=== PATIENT | male | born 1975 | race Caucasian/White ===

== ENCOUNTER 2022-05-05 06:14 | Emergency (ER) | payer BC ==
[2022-05-05 07:10] LABS: BASO % 0.7 % (0-2.0); HEMATOCRIT 47.2 % (35.4-49); LYMPH % 30.5 % (8-40); MCH 32.2 pg (25.7-33.7); MCHC 33.8 g/dl (32.0-35.9); MEAN CELL VOLUME 95.2 fl (80-96); MEAN PLT VOLUME 8.2 fl (7.5-11.1); MONO % 11.4 % (3.8-10.2); NEUT % 55.4 % (42.8-82.8); PLATELET COUNT 280 10^3/uL (134-434); RBC 4.96 M/mm3 (4.00-5.60); RDW 13.7 % (11.9-15.9); WHITE BLOOD COUNT 7.3 K/mm3 (4.0-10.0)
[2022-05-05 07:11] VITALS: RESP 18; TEMP 98; BMI 24.3
[2022-05-05 10:36] VITALS: BP 137/97; PULSE 109
[2022-05-05 10:38] LABS: ALBUMIN 4.5 g/dl (3.4-5.0); BILIRUBIN,TOTAL 0.2 mg/dL (0.2-1); BLOOD UREA NITROGEN 14.4 mg/dL (7-18); CALCIUM 9.9 mg/dL (8.5-10.1); CREATININE 1.1 mg/dL (0.55-1.3); TOT PROT 8.4 g/dl (6.4-8.2)
[2022-05-05 10:46] LABS: INR 0.98 (0.83-1.09); PROTHROMBIN TIME (PATIENT) 11.4 SEC (9.7-13.0)
== END 2022-05-05 10:57 | disposition home or self-care (01) ==
LOC: FER 06:14
DX: R41.82 Altered mental status, unspecified (principal)
CPT/HCPCS: 0241U-QW; 36415; 70450-TC; 71045-TC-FY; 80053; 80307; 84484; 85025; 85610; 93005; 99285-25

== ENCOUNTER 2023-06-29 02:38 | Emergency (ER) | payer BC ==
[2023-06-29 02:49] VITALS: BP 138/96; PULSE 108; RESP 18; TEMP 98.1; BMI 21.2
== END 2023-06-29 06:30 | disposition home or self-care (01) ==
LOC: JER 02:38
DX: F10.129 Alcohol abuse with intoxication, unspecified (principal); Y90.9 Presence of alcohol in blood, level not specified
CPT/HCPCS: 36415; 80307; 99283-25

== ENCOUNTER 2023-07-14 15:34 | Inpatient (IN) | payer BC ==
[2023-07-14 16:46] VITALS: BMI 24.1
[2023-07-14] MEDS ORDERED: NICOTINE POLACRILEX 2 MG LOZENGE BC PRN (17:28)
[2023-07-14] MEDS ORDERED: BENZONATATE 200 MG CAPSULE PO PRN (17:28)
[2023-07-14] MEDS ORDERED: MAGNESIUM HYDROX 2400MG/30ML ORAL SUSPENSION 30 ML CUP PO PRN (17:28)
[2023-07-14] MEDS ORDERED: BENZOCAINE/MENTHOL (CHLORASEPTIC ) LOZENGE MM PRN (17:28)
[2023-07-14] MEDS ORDERED: ACETAMINOPHEN 325 MG TABLET (FP) PO PRN (17:28)
[2023-07-14] MEDS ORDERED: hydrOXYzine PAMOATE 25 MG CAPSULE (FP) PO PRN (17:28)
[2023-07-14] MEDS ORDERED: POLYETHYLENE GLYCOL (HEALTHYLAX) 3350 17 GM PACKET PO PRN (17:28)
[2023-07-14] MEDS ORDERED: DOCUSATE SODIUM 100 MG CAPSULE (FP) PO PRN (17:28)
[2023-07-14] MEDS ORDERED: IBUPROFEN 400 MG TABLET (FP) PO PRN (17:28)
[2023-07-14] MEDS ORDERED: MAG HYDROX/AL HYDROX/SIMETH 30 ML UNIT-DOSE CUP PO PRN (17:28)
[2023-07-14] MEDS ORDERED: NICOTINE POLACRILEX 2 MG GUM BUC PRN (17:28)
[2023-07-14] MEDS ORDERED: LOPERAMIDE HCL 2 MG CAPSULE PO PRN (17:28)
[2023-07-14] MEDS: amLODIPine BESYLATE 5 MG TABLET (FP) PO SCH (18:00)
[2023-07-14] MEDS ORDERED: amLODIPine BESYLATE 5 MG TABLET (FP) ONE (19:28)
[2023-07-14] MEDS: THIAMINE 100 MG TABLET PO SCH (22:09)
[2023-07-14] MEDS: MELATONIN 5 MG TABLETS PO SCH (22:10)
[2023-07-14] MEDS: TUBERCULIN PPD 5 TU/0.1ML SYRINGE (IN PATIENT USE ONLY) ID ONE (22:38)
[2023-07-14] MEDS: amLODIPine BESYLATE 5 MG TABLET (FP) PO ONE (23:24)
[2023-07-15 01:52] LABS: PH,URINE 5.5 (5.0-8.0); URINE APPEARANCE TURBID; URINE BILIRUBIN NEGATIVE (NEGATIVE); URINE COLOR DK YELLOW; URINE GLUCOSE (UA) NEGATIVE (NEGATIVE); URINE KETONE TRACE (NEGATIVE); URINE LEUK ESTERASE NEGATIVE (NEGATIVE); URINE NITRITE NEGATIVE (NEGATIVE); URINE PROTEIN TRACE (NEGATIVE)
[2023-07-15] MEDS: PRENATAL VITAMINS W/ FOLIC ACID TABLET (FP) PO SCH (09:25)
[2023-07-15 12:12] LABS: HEMATOCRIT 43.3 % (35.4-49); HEMOGLOBIN 14.6 GM/dL (11.7-16.9); MCH 32.9 pg (25.7-33.7); MCHC 33.6 g/dl (32.0-35.9); MEAN CELL VOLUME 97.8 fl (80-96); PLATELET COUNT 241 10^3/uL (134-434); RBC 4.43 M/mm3 (4.00-5.60); RDW 13.1 % (11.9-15.9)
[2023-07-15 12:25] LABS: ALBUMIN 4.1 g/dl (3.4-5.0); BLOOD UREA NITROGEN 12.4 mg/dL (7-18); CALCIUM 9.6 mg/dL (8.5-10.1)
[2023-07-15 12:28] LABS: CREATININE 0.8 mg/dL (0.55-1.3)
[2023-07-15 12:30] LABS: BILIRUBIN,TOTAL 0.5 mg/dL (0.2-1); TOT PROT 7.2 g/dl (6.4-8.2)
[2023-07-16] MEDS: guaiFENesin 600 MG TABLET.ER (FP) PO PRN (08:32)
[2023-07-20] MEDS: HYDROCORTISONE 1% TOPICAL CREAM 30 GM TUBE TP PRN (15:28)
[2023-07-21] MEDS: IBUPROFEN 600 MG TABLET (FP) PO PRN (16:57)
[2023-07-24] MEDS ORDERED: TETRAHYDROZOLINE HCL EYE DROPS OU PRN (15:26)
[2023-07-27 06:30] VITALS: RESP 16; TEMP 97.5
[2023-07-27 09:00] VITALS: BP 127/78; PULSE 82
== END 2023-07-27 09:19 | disposition home or self-care (01) | DRG 895 ==
LOC: YASAS 15:34 → Y3NR 21:18 → Y3E 07-15 09:37
PROVIDERS: ADMIT Allergy & Immunology; ATTEND Psychiatry & Neurology Pain Medicine
PROC: HZ42ZZZ Group Counseling for Substance Abuse Treatment, Cognitive-Behavioral (ICD-10-PCS; principal; 2023-07-14)
DX: F10.20 Alcohol dependence, uncomplicated (principal); F17.210 Nicotine dependence, cigarettes, uncomplicated; I10 Essential (primary) hypertension; M54.2 Cervicalgia; R73.03 Prediabetes; Z88.0 Allergy status to penicillin
CPT/HCPCS: 36415; 80053; 80305; 81003; 82962; 85027; 86780; 87811; 93005; 93010